=== PATIENT | female | born 2000 | race African-American/Black ===

== ENCOUNTER 2022-09-03 05:44 | Emergency (ER) | payer OTHER ==
[~2022-09-03] VITALS: Ht 170.2 cm; Wt 71.4 kg
[2022-09-03 05:47] VITALS: BP 104/71
[2022-09-03] MEDS ORDERED: ALBU8HFA IH (05:52)
[2022-09-03] MEDS ORDERED: IBUPROFEN 600 MG TABLET PO ONE (06:30)
== END 2022-09-03 06:46 | disposition home or self-care (01) ==
LOC: EMS 05:47
DX: S09.90XA Unspecified injury of head, initial encounter (principal); F10.20 Alcohol dependence, uncomplicated; F12.90 Cannabis use, unspecified, uncomplicated; J45.909 Unspecified asthma, uncomplicated; W22.8XXA Striking against or struck by other objects, initial encounter; Y93.89 Activity, other specified; Y92.89 Other specified places as the place of occurrence of the external cause; Y99.8 Other external cause status
CPT/HCPCS: 99282; Z7502; Z7610

== ENCOUNTER 2022-09-12 16:02 | Emergency (ER) | payer OTHER ==
[~2022-09-12] VITALS: Ht 160 cm; Wt 70.9 kg
[~2022-09-12 16:02] MED LIST: ALBU8HFA IH
[2022-09-12 17:22] LABS: COVID AG,FIA SOURCE NASAL SWAB
[2022-09-12 17:46] LABS: INFLUENZA TYPE A NEGATIVE FOR TYPE A (NEGATIVE)
[2022-09-12 18:12] LABS: INFLUENZA TYPE B POSITIVE FOR TYPE B (NEGATIVE)
[2022-09-12 18:18] VITALS: BP 136/88
== END 2022-09-12 18:33 | disposition home or self-care (01) ==
LOC: EMS 16:19
DX: J11.1 Influenza due to unidentified influenza virus with other respiratory manifestations (principal); Z20.822 Contact with and (suspected) exposure to COVID-19; F10.20 Alcohol dependence, uncomplicated; F12.90 Cannabis use, unspecified, uncomplicated
CPT/HCPCS: 87804; 99283